=== PATIENT | female | born 2000 | race Caucasian/White ===

== ENCOUNTER 2018-01-15 09:46 | Emergency (ER) | payer MEDICAID ==
[~2018-01-15] VITALS: Ht 162.6 cm; Wt 46.0 kg
[2018-01-15 11:55] LABS: CLARITY,URINE CLEAR (Clear); COLOR,URINE STRAW (Yellow); GLUCOSE, URINE NEGATIVE (Neg); KETONES,URINE NEGATIVE (Neg); LEUKOCYTE ESTERASE ,URINE NEGATIVE (Neg); NITRITES, URINE NEGATIVE (Neg); OCCULT BLOOD,URINE NEGATIVE (Neg); PH,URINE 7.5 (4.8-8.0); PROTEIN,URINE NEGATIVE (Neg); UROBILINOGEN,URINE 0.2 E.U/dL (0.2-1.0)
[2018-01-15 11:57] LABS: UA COLLECTION TYPE STRAIGHT CATH
[2018-01-15 12:11] VITALS: BP 101/51
== END 2018-01-15 12:12 | disposition home or self-care (01) ==
LOC: ER 09:46
DX: O20.0 Threatened abortion (principal); O99.331 Smoking (tobacco) complicating pregnancy, first trimester; Z3A.01 Less than 8 weeks gestation of pregnancy
CPT/HCPCS: 36415; 81003; 84702; 99284

== ENCOUNTER 2018-02-18 10:25 | Emergency (ER) | payer OTHER, MEDICAID ==
[~2018-02-18] VITALS: Ht 162.6 cm; Wt 52.0 kg
[2018-02-18 12:08] VITALS: BP 133/74
== END 2018-02-18 12:11 | disposition home or self-care (01) ==
LOC: ER 10:26
DX: O20.0 Threatened abortion (principal); Z3A.12 12 weeks gestation of pregnancy; Z87.891 Personal history of nicotine dependence
CPT/HCPCS: 99281

== ENCOUNTER 2020-04-30 20:31 | Emergency (ER) | payer MEDICAID ==
[~2020-04-30] VITALS: Ht 162.6 cm; Wt 57.5 kg
[2020-04-30 20:42] VITALS: BP 160/97
[2020-04-30] MEDS ORDERED: hydrOXYzine 25 MG tablet PO ONE (21:20)
[2020-04-30] MEDS ORDERED: HYDR50TA65 PO (21:21)
== END 2020-04-30 21:35 | disposition home or self-care (01) ==
LOC: ER 20:32
DX: F41.0 Panic disorder [episodic paroxysmal anxiety] (principal); Z87.440 Personal history of urinary (tract) infections; Z79.899 Other long term (current) drug therapy
CPT/HCPCS: 99283; Q0177

== ENCOUNTER 2022-01-18 14:43 | Emergency (ER) | payer MEDICAID ==
[~2022-01-18] VITALS: Ht 162.6 cm; Wt 66.0 kg
[~2022-01-18 14:43] MED LIST: HYDR50TA65 PO
[2022-01-18 14:55] VITALS: BP 124/82
[2022-01-18] MEDS ORDERED: AMOX-100 PO (16:51)
[2022-01-18] MEDS ORDERED: IBUP-1986 PO (16:51)
[2022-01-18] MEDS ORDERED: acetaminophen 325mg tablet PO ONE (17:05)
== END 2022-01-18 17:07 | disposition home or self-care (01) ==
LOC: ER 14:43
DX: K08.89 Other specified disorders of teeth and supporting structures (principal); F41.9 Anxiety disorder, unspecified; Z87.448 Personal history of other diseases of urinary system; Z79.899 Other long term (current) drug therapy
CPT/HCPCS: 99283

== ENCOUNTER 2022-07-19 15:08 | Emergency (ER) | payer MEDICAID ==
[~2022-07-19] VITALS: Ht 162.6 cm; Wt 68.2 kg
[~2022-07-19 15:08] MED LIST changes: +IBUP-1986 PO
[2022-07-19 15:39] LABS: BASOPHILS % (AUTO) 0.5 % (0-1); EOSINOPHILS # (AUTO) 0.4 X10'3 (0-0.9); EOSINOPHILS % (AUTO) 4.3 % (0-6); HEMATOCRIT 37.4 % (35.0-45.0); HEMOGLOBIN 13.2 g/dl (12.0-16.0); LYMPHOCYTES # (AUTO) 2.2 X10'3 (1.1-4.8); LYMPHOCYTES % (AUTO) 25.7 % (21-51); MEAN CORPUSCULAR HEMOGLOBIN 29.7 PG (27.0-31.0); MEAN CORPUSCULAR HGB CONC 35.3 g/dL (33.0-36.5); MEAN CORPUSCULAR VOLUME 84.3 FL (78-98); MEAN PLATELET VOLUME 7.7 FL (7.4-10.4); MONOCYTES # (AUTO) 0.8 X10'3 (0-0.9); MONOCYTES % (AUTO) 8.6 % (2-12); NEUTROPHILS # (AUTO) 5.3 X10'3 (1.8-7.7); NEUTROPHILS % (AUTO) 60.9 % (42-75); PLATELET COUNT 298 X10'3 (140-440); RED BLOOD COUNT 4.44 X10'6 (4.20-5.60); RED CELL DISTRIBUTION WIDTH 12.7 % (11.5-14.5); WHITE BLOOD COUNT 8.7 X10'3 (4.5-11.0)
[2022-07-19 15:46] LABS: CLARITY,URINE CLEAR (Clear); COLOR,URINE YELLOW (Yellow); GLUCOSE, URINE NEGATIVE (Neg); KETONES,URINE NEGATIVE (Neg); LEUKOCYTE ESTERASE ,URINE NEGATIVE (Neg); NITRITES, URINE NEGATIVE (Neg); OCCULT BLOOD,URINE NEGATIVE (Neg); PH,URINE 7.5 (4.8-8.0); PROTEIN,URINE NEGATIVE (Neg); UROBILINOGEN,URINE 0.2 E.U/dL (0.2-1.0)
[2022-07-19 15:47] LABS: UA COLLECTION TYPE CLN CATCH MIDSTREAM
[2022-07-19 15:49] LABS: URINE HCG NEGATIVE (NEG)
[2022-07-19] MEDS ORDERED: normal saline 1000ML IV soln IVB ONE (15:50)
[2022-07-19 15:53] LABS: ALANINE AMINOTRANSFERASE 49 U/L (12-78); ALBUMIN 3.6 G/DL (3.4-5.0); ALKALINE PHOSPHATASE 85 IU/L (46-116); ANION GAP 7 (8-16); ASPARTATE AMINO TRANSFERASE 34 U/L (10-37); BILIRUBIN,TOTAL 0.4 MG/DL (0.1-1.0); BLOOD UREA NITROGEN 9 MG/DL (7-18); BUN/CREATININE RATIO 13.6 (6.6-38.0); CALCIUM 8.8 MG/DL (8.5-10.1); CHLORIDE 105 MMOL/L (99-107); CREATININE 0.66 MG/DL (0.40-0.90); GLUCOSE 99 MG/DL (70-104); LIPASE 158 U/L (73-393); POTASSIUM 3.8 MMOL/L (3.5-5.1); SODIUM 138 MMOL/L (135-145); TOTAL CARBON DIOXIDE 26.1 MMOL/L (24-32); TOTAL PROTEIN 7.2 G/DL (6.4-8.2); eGFR > 90 ML/MIN
[2022-07-19] MEDS ORDERED: ketorolac trometh. 30mg/ml inj. IV ONE (16:00)
[2022-07-19 17:39] VITALS: BP 113/67
== END 2022-07-19 17:44 | disposition home or self-care (01) ==
LOC: ER 15:08
DX: R10.31 Right lower quadrant pain (principal); F41.9 Anxiety disorder, unspecified; Z87.440 Personal history of urinary (tract) infections; Z79.899 Other long term (current) drug therapy
CPT/HCPCS: 36415; 76856; 80053; 81003; 81025; 83690; 85025; 93976; 96361; 96374; 99284; J1885; J7030

== ENCOUNTER 2023-08-21 15:50 | Emergency (ER) | payer MEDICAID ==
[~2023-08-21] VITALS: Ht 162.6 cm; Wt 70.9 kg
--- NOTE | 2023-08-21 17:04 | NUR ---
Patient reported she tested positive for covid on . Reported nasal congestion as only her symptom
[2023-08-21 17:06] LABS: BASOPHILS % (AUTO) 0.6 % (0-1); EOSINOPHILS # (AUTO) 0.2 X10'3 (0-0.9); EOSINOPHILS % (AUTO) 2.8 % (0-6); HEMATOCRIT 38.8 % (35.0-45.0); HEMOGLOBIN 13.1 g/dl (12.0-16.0); LYMPHOCYTES # (AUTO) 1.9 X10'3 (1.1-4.8); LYMPHOCYTES % (AUTO) 27.5 % (21-51); MEAN CORPUSCULAR HEMOGLOBIN 29.9 PG (27.0-31.0); MEAN CORPUSCULAR HGB CONC 33.9 g/dL (33.0-36.5); MEAN CORPUSCULAR VOLUME 88.1 FL (78-98); MONOCYTES # (AUTO) 0.5 X10'3 (0-0.9); MONOCYTES % (AUTO) 7.7 % (2-12); NEUTROPHILS # (AUTO) 4.3 X10'3 (1.8-7.7); NEUTROPHILS % (AUTO) 61.4 % (42-75); PLATELET COUNT 296 X10'3 (140-440); RED CELL DISTRIBUTION WIDTH 12.9 % (11.5-14.5); WHITE BLOOD COUNT 7.1 X10'3 (4.5-11.0)
[2023-08-21 17:23] LABS: ALANINE AMINOTRANSFERASE 16 U/L (12-78); ALBUMIN 3.6 G/DL (3.4-5.0); ALBUMIN/GLOBULIN RATIO 0.9 (1.1-1.5); ALKALINE PHOSPHATASE 68 IU/L (46-116); ANION GAP 8 (8-16); ASPARTATE AMINO TRANSFERASE 20 U/L (10-37); BILIRUBIN,TOTAL 0.2 MG/DL (0.1-1.0); BLOOD UREA NITROGEN 10 MG/DL (7-18); BUN/CREATININE RATIO 14.9 (10.0-20.0); CALCIUM 8.8 MG/DL (8.5-10.1); CHLORIDE 101 MMOL/L (99-107); CREATININE 0.67 MG/DL (0.40-0.90); GLUCOSE 76 MG/DL (70-104); LIPASE 59 U/L (16-77); POTASSIUM 3.4 MMOL/L (3.5-5.1); SODIUM 136 MMOL/L (135-145); TOTAL CARBON DIOXIDE 26.8 MMOL/L (24-32); TOTAL PROTEIN 7.5 G/DL (6.4-8.2); eCRCL 112 ML/MIN; eGFR > 90 ML/MIN
[2023-08-21 17:41] LABS: BILIRUBIN,URINE NEGATIVE (Neg); CLARITY,URINE SLIGHTLY CLOUDY (Clear); COLOR,URINE YELLOW (Yellow); GLUCOSE, URINE NEGATIVE (Neg); KETONES,URINE NEGATIVE (Neg); LEUKOCYTE ESTERASE ,URINE NEGATIVE (Neg); NITRITES, URINE NEGATIVE (Neg); OCCULT BLOOD,URINE MODERATE (Neg); PH,URINE 6.5 (4.8-8.0); PROTEIN,URINE NEGATIVE (Neg); URINE HCG NEGATIVE (NEG); UROBILINOGEN,URINE 0.2 E.U/dL (0.2-1.0)
[2023-08-21 17:45] LABS: UA COLLECTION TYPE CLN CATCH MIDSTREAM
[2023-08-21 17:47] LABS: BACTERIA,URINE 3+ /HPF (Neg); MUCUS STRANDS FEW /LPF (Neg); RBC,URINE 20-50 /HPF (0-2); SQUAMOUS EPITHELIAL CELL,UR MANY /LPF (FEW); TRANSITIONAL EPI CELLS,URINE FEW /HPF; WBC,URINE 0-4 /HPF (0-4)
[2023-08-21 19:38] VITALS: BP 120/93; PULSE 70
[2023-08-21] MEDS ORDERED: SULF1TAB45 PO (20:04)
[2023-08-21] MEDS ORDERED: sulfamethoxazole/trimethoprim DS (800/160mg) tablet PO ONE (20:05)
[2023-08-21 20:35] VITALS: RESP 16; TEMP 98.2; O2SAT 98
== END 2023-08-21 20:38 | disposition home or self-care (01) ==
LOC: ER 15:51
DX: U07.1 COVID-19 (principal); F41.9 Anxiety disorder, unspecified; Z79.899 Other long term (current) drug therapy
CPT/HCPCS: 36415; 74176; 80053; 81001; 81025; 83690; 85025; 99284

== ENCOUNTER 2023-11-06 17:16 | Emergency (ER) | payer MEDICAID ==
[~2023-11-06] VITALS: Ht 162.6 cm; Wt 70.9 kg
[2023-11-06 17:38] VITALS: BP 116/74; PULSE 85; RESP 16; TEMP 98.5; O2SAT 98
[2023-11-06] MEDS: TETanus/Pertussis (Acell)/Diphther VAC/PF (Tdap-Adult) 0.5ml syringe IMVAC ONE (18:04)
[2023-11-06] MEDS: LIDOcaine 1%/PF 5ML 10 MG/ML VIAL SQ ONE (18:43)
[2023-11-06] MEDS: bacitracin 15gm ointment TP ONE (18:43)
== END 2023-11-06 18:59 | disposition home or self-care (01) ==
LOC: ER 17:17
DX: L02.412 Cutaneous abscess of left axilla (principal); Z79.1 Long term (current) use of non-steroidal anti-inflammatories (NSAID); Z79.899 Other long term (current) drug therapy
CPT/HCPCS: 10060; 87070; 87077; 87186; 90471; 90715; 99283; A6407; J7030; A6449

== ENCOUNTER 2024-02-18 13:31 | Emergency (ER) | payer MEDICAID ==
[~2024-02-18] VITALS: Ht 162.6 cm; Wt 69.7 kg
[2024-02-18 13:37] VITALS: BP 118/86; PULSE 73; RESP 16; TEMP 98.6; O2SAT 97
[2024-02-18 15:10] LABS: BILIRUBIN,URINE NEGATIVE (Neg); CLARITY,URINE SLIGHTLY CLOUDY (Clear); COLOR,URINE YELLOW (Yellow); GLUCOSE, URINE NEGATIVE (Neg); KETONES,URINE NEGATIVE (Neg); LEUKOCYTE ESTERASE ,URINE NEGATIVE (Neg); NITRITES, URINE NEGATIVE (Neg); OCCULT BLOOD,URINE NEGATIVE (Neg); PROTEIN,URINE NEGATIVE (Neg); UA COLLECTION TYPE CLN CATCH MIDSTREAM; UROBILINOGEN,URINE 0.2 E.U/dL (0.2-1.0)
[2024-02-18 15:23] LABS: RBC,URINE 0-2 /HPF (0-2); SQUAMOUS EPITHELIAL CELL,UR MANY /LPF (FEW); WBC,URINE 0-4 /HPF (0-4)
[2024-02-18 15:30] LABS: BACTERIA,URINE 2+ /HPF (Neg)
[2024-02-18 15:54] LABS: BASOPHILS # (AUTO) 0.1 X10'3 (0-0.2); BASOPHILS % (AUTO) 0.6 % (0-1); EOSINOPHILS # (AUTO) 0.2 X10'3 (0-0.9); EOSINOPHILS % (AUTO) 2.5 % (0-6); HEMATOCRIT 40.4 % (35.0-45.0); HEMOGLOBIN 13.6 g/dl (12.0-16.0); LYMPHOCYTES # (AUTO) 2.3 X10'3 (1.1-4.8); LYMPHOCYTES % (AUTO) 23.3 % (21-51); MEAN CORPUSCULAR HGB CONC 33.6 g/dL (33.0-36.5); MEAN CORPUSCULAR VOLUME 86.4 FL (78-98); MEAN PLATELET VOLUME 7.9 FL (7.4-10.4); MONOCYTES # (AUTO) 0.5 X10'3 (0-0.9); MONOCYTES % (AUTO) 5.2 % (2-12); NEUTROPHILS # (AUTO) 6.6 X10'3 (1.8-7.7); NEUTROPHILS % (AUTO) 68.4 % (42-75); PLATELET COUNT 320 X10'3 (140-440); RED BLOOD COUNT 4.68 X10'6 (4.20-5.60); RED CELL DISTRIBUTION WIDTH 13.6 % (11.5-14.5); WHITE BLOOD COUNT 9.7 X10'3 (4.5-11.0)
[2024-02-18 16:05] LABS: ALANINE AMINOTRANSFERASE 14 U/L (12-78); ALBUMIN 3.7 G/DL (3.4-5.0); ALBUMIN/GLOBULIN RATIO 0.9 (1.1-1.5); ALKALINE PHOSPHATASE 60 IU/L (46-116); ANION GAP 8 (8-16); ASPARTATE AMINO TRANSFERASE 11 U/L (10-37); BILIRUBIN,TOTAL 0.3 MG/DL (0.1-1.0); BLOOD UREA NITROGEN 6 MG/DL (7-18); BUN/CREATININE RATIO 10.7 (10.0-20.0); CALCIUM 8.9 MG/DL (8.5-10.1); CHLORIDE 101 MMOL/L (99-107); CREATININE 0.56 MG/DL (0.40-0.90); GLUCOSE 82 MG/DL (70-104); POTASSIUM 3.6 MMOL/L (3.5-5.1); SODIUM 133 MMOL/L (135-145); TOTAL CARBON DIOXIDE 23.7 MMOL/L (24-32); TOTAL PROTEIN 7.9 G/DL (6.4-8.2); eCRCL 133 ML/MIN; eGFR > 90 ML/MIN
[2024-02-18 16:15] LABS: BETA HCG,QUANTITATIVE 184 mIU/ml
== END 2024-02-18 17:05 | disposition home or self-care (01) ==
LOC: ER 13:31
DX: O20.9 Hemorrhage in early pregnancy, unspecified (principal); Z3A.01 Less than 8 weeks gestation of pregnancy; Z79.1 Long term (current) use of non-steroidal anti-inflammatories (NSAID); Z79.899 Other long term (current) drug therapy
CPT/HCPCS: 36415; 76801; 76817; 76830; 80053; 81001; 84702; 85025; 86900; 86901; 99284

== ENCOUNTER 2024-02-21 14:14 | Emergency (ER) | payer MEDICAID ==
[~2024-02-21] VITALS: Ht 162.6 cm; Wt 70.2 kg
[2024-02-21 14:30] VITALS: BP 121/79; PULSE 69; TEMP 98.7; O2SAT 97
[2024-02-21 15:51] VITALS: RESP 18
== END 2024-02-21 15:53 | disposition home or self-care (01) ==
LOC: ER 14:15
DX: O20.9 Hemorrhage in early pregnancy, unspecified (principal); O26.891 Other specified pregnancy related conditions, first trimester; R10.9 Unspecified abdominal pain; Z3A.01 Less than 8 weeks gestation of pregnancy; Z79.899 Other long term (current) drug therapy; Z79.1 Long term (current) use of non-steroidal anti-inflammatories (NSAID)
CPT/HCPCS: 36415; 84702; 99283

== ENCOUNTER 2024-03-31 10:26 | Outpatient (CLI) | payer MEDICAID | END 2024-03-31 23:59 | disposition home or self-care (01) | LOC: RAD 10:26 | PROVIDERS: ATTEND Obstetrics & Gynecology | DX: Z34.91 Encounter for supervision of normal pregnancy, unspecified, first trimester (principal); Z3A.10 10 weeks gestation of pregnancy | CPT/HCPCS: 76801 ==